=== PATIENT | female | born 1955 | race Caucasian/White ===

== ENCOUNTER → 2018-08-17 | Outpatient (CLI) | payer OTHER ==
--- NOTE | 2018-08-20 18:23 | SLE ---
[facility] [place] [address] POLYSOMNOGRAPHY STUDY Name: VANCE VICK Room #: REG FRANCISCO ReiMyronRei#: [id number] Admission: 08/17/18 Attend Phys: Favio Acevedo MD Discharge: Date of : 55 Report #: [id number] THIS REPORT FOR: //name// CC: Favio Arvizu DATE OF SERVICE: 08/17/2018 ATTENDING PHYSICIAN: Dr. Tai Camarena. The patient is a 63-year-old who weighs 235 pounds with a BMI of 36.8. The patient has moderate to severe subjective hypersomnia with an [place] score of 17. The patient had a home sleep study and was found to have moderate FARHAT with worsening during supine sleep. Total AHI was 21 per hour with a supine AHI of 44 per hour. The patient has been on auto CPAP at 5-20; however, she has not been able to tolerate higher pressures. She was referred back to CPAP/BiPAP titration study. During the night study, the patient spent 390 minutes in bed and slept for 255 minutes with a low sleep efficiency of 65%. Sleep latency was 20 minutes with a REM latency of 35 minutes, which was short. Overall sleep architecture showed normal stage 1 sleep, increased stage 2 sleep, absent N3 sleep and reduced REM sleep, which was 14% of the total sleep time. EKG monitoring revealed an average heart rate of 63 beats per minute with a maximum of 72 beats per minute. No sustained arrhythmias observed. PLMS were seen at the index of 49 per hour, but only 3 per hour caused EEG arousals. The patient was started initially on CPAP; however, the patient could not tolerate the pressure. As a result, she was switched to BiPAP. The patient was titrated up to BiPAP pressure of 14/16, however, the patient was anxious and appeared to have a panic attack and could not tolerate BiPAP. As a result, she was then switched to CPAP. The patient did very well at a CPAP pressure of 13 cm water. The patient had 149 minutes of sleep. The patient had 26 minutes of lateral REM sleep. The patient's AHI was 0.4 per hour and oxygen saturations remained above 93%. IMPRESSION: 1. Sleep apnea diagnosed by home sleep study. 2. Severe periodic limb movements of sleep. RECOMMENDATIONS: 1. CPAP at 13 cm water completely eliminated the patient's sleep apnea and [facility] [address] [place] [address] POLYSOMNOGRAPHY STUDY Name: VANCE VICK Room #: REG CLI [facility]#: [id number] Admission: 08/17/18 Attend Phys: Favio Acevedo MD Discharge: Date of : 55 Report #: [id number] should be used on a nightly basis. 2. Follow up in 4-6 weeks to assess compliance with CPAP and to document clinical improvement. 3. Weight loss is strongly advised. 4. Avoid [employer] depressants. 5. Cautioned regarding driving until symptoms of sleep apnea have resolved with the use of CPAP. 6. The patient should also be further evaluated for symptoms of restless legs during the day. 7. The patient appeared to have anxiety attacks on the night of study. If she chronic anxiety disorder, then it should be treated accordingly. <ELECTRONICALLY SIGNED> By: Favio Acevedo MD 08/20/18 1823 [id number] Favio Acevedo MD /nt
== END ==
LOC: SLEEPLAB 07-27 12:48
DX: G47.30 Sleep apnea, unspecified (principal); G47.61 Periodic limb movement disorder